=== PATIENT | female | born 1955 | race Caucasian/White ===

== ENCOUNTER → 2021-02-11 | Outpatient (CLI) | payer OTHER ==
[~2021-02-11] MED LIST: OMNIPAQUE 350 MG/ML, 150 ML BOTTLE ONE
== END | disposition home or self-care (01) ==
LOC: CFH 08:15
PROVIDERS: ATTEND Internal Medicine
DX: N83.201 Unspecified ovarian cyst, right side (principal); N13.30 Unspecified hydronephrosis
CPT/HCPCS: 74178; 82565; Q9967

== ENCOUNTER 2021-02-16 06:32 | Emergency (ER) | payer OTHER ==
[~2021-02-16] VITALS: Ht 160 cm; Wt 65.0 kg
[2021-02-16 10:45] VITALS: BP 100/72
== END 2021-02-16 10:50 | disposition home or self-care (01) ==
LOC: ED 07:01
DX: M54.6 Pain in thoracic spine (principal)
CPT/HCPCS: 36415; 72072; 80053; 81001; 83690; 85025; 96372; 99285; J1885